=== PATIENT | female | born 1965 | race Caucasian/White ===

== ENCOUNTER 2016-11-23 08:23 | Day surgery (SDC) | payer OTHER ==
[2016-11-21 09:33] LABS: BASOPHILS # (AUTO) 0.1 K/uL (0.00-0.22); BASOPHILS % (AUTO) 1.9 % (0.0-2.0); EOSINOPHILS # (AUTO) 0.2 K/uL (0-0.4); EOSINOPHILS % (AUTO) 3.3 % (0.0-4.0); HEMATOCRIT 42.3 % (36-48); HEMOGLOBIN 14.2 g/dL (12.0-16.0); LYMPHOCYTES # (AUTO) 1.7 K/uL (2.5-16.5); LYMPHOCYTES % (AUTO) 29.6 % (20.5-51.1); MEAN CORPUSCULAR HEMOGLOBIN 30 pg (27-31); MEAN CORPUSCULAR HGB CONC 34 g/dL (33-37); MEAN CORPUSCULAR VOLUME 90 fL (80-94); MONOCYTES # (AUTO) 0.4 K/uL (0.8-1.0); MONOCYTES % (AUTO) 6.2 % (1.7-9.3); NEUTROPHILS # (AUTO) 3.5 K/uL (1.8-7.7); PLATELET COUNT (AUTO) 220 K/uL (140-450); RED BLOOD CELL COUNT(AUTO) 4.72 MIL/uL (4.20-5.40); RED CELL DISTRIBUTION WIDTH 12.2 % (11.6-13.7); WHITE BLOOD COUNT (AUTO) 5.9 K/uL (4.8-10.8)
[2016-11-21 10:08] LABS: ALBUMIN 3.9 g/dL (3.4-5.0); ANION GAP 10.1 (8-16); CARBON DIOXIDE 28.1 mmol/L (21-32); CREATININE 0.6 mg/dL (0.6-1.3); PHOSPHORUS 4.1 mg/dL (2.5-4.9); POTASSIUM 4.2 mmol/L (3.5-5.1)
[2016-11-21 10:44] LABS: PROTHROMBIN TIME 10.3 secs (10.8-13.4)
[~2016-11-23] VITALS: Ht 154.9 cm; Wt 79.4 kg
[2016-11-23] MEDS ORDERED: PROPOFOL 200 MG/20 ML VIAL IV ONE (11:46)
[2016-11-23] MEDS ORDERED: MIDAZOLAM 2 MG/2 ML VIAL ONE (12:54)
[2016-11-23] MEDS ORDERED: fentaNYL 0.05 MG/ML VIAL ONE (12:54)
[2016-11-23] MEDS ORDERED: MEPERIDINE 50 MG/ML SYR ONE (12:55)
[2016-11-23] MEDS ORDERED: ONDANSETRON 4 MG/2 ML VIAL IVP PRN (13:00)
[2016-11-23] MEDS ORDERED: MEPERIDINE 25 MG/ML SYR IVP PRN (13:00)
[2016-11-23] MEDS ORDERED: LACTATED RINGERS 1,000 ML IV SCH ×2 (13:00→13:33)
[2016-11-23] MEDS ORDERED: diphenhydrAMINE 50 MG/ML VIAL IVP PRN (13:00)
[2016-11-23] MEDS ORDERED: HYDROmorphone 1 MG/ML AMP IVP PRN (13:00)
[2016-11-23] MEDS ORDERED: IBUPROFEN 600 MG TAB PO PRN (13:35)
== END 2016-11-23 14:37 | disposition home or self-care (01) ==
LOC: MDS 08:23 → MMU 08:24 → MDS 14:37
PROVIDERS: ATTEND Obstetrics & Gynecology
DX: N95.0 Postmenopausal bleeding (principal); E66.9 Obesity, unspecified; Z90.49 Acquired absence of other specified parts of digestive tract; Z98.890 Other specified postprocedural states; Z79.899 Other long term (current) drug therapy
CPT/HCPCS: 36415; 58120; 71010; 82040; 82435; 82565; 82947; 84100; 84132; 84295; 84520; 84702; 85025; 85610; 85730; 88305; 93005; J2175; J2250; J2704; J3010; J7120